=== PATIENT | female | born 1955 | race Caucasian/White ===

== ENCOUNTER 2016-12-08 07:16 | Inpatient (IN) | payer BC ==
[~2016-12-08] VITALS: Ht 170.2 cm; Wt 73.0 kg
[2016-12-08] MEDS ORDERED: morphine 4 MG/ML VIAL IV STA (07:30)
[2016-12-08] MEDS ORDERED: SOD CHLORIDE 0.9% 1,000 ML IV STA ×2 (07:30→13:38)
[2016-12-08] MEDS ORDERED: ONDANSETRON 4 MG INJ IV STA ×7 (07:30→16:10)
[2016-12-08] MEDS ORDERED: HYDROmorphONE 1 MG/ML SYG IV STA ×6 (07:57→16:10)
[2016-12-08] MEDS ORDERED: DIAZEPAM 5 MG/ML SYG IV ONE (08:00)
--- NOTE | 2016-12-08 08:24 | ERD ---
ER Documentation Chief Complaint Date/Time DATE: 12/08/16 TIME: 08:20 Chief Complaint back pain HPI This is a very pleasant 7-year-old female with a known history of chronic lymphocytic leukemia diagnosed 5 years prior to arrival who presents to the emergency department complaining of a sudden onset of mid and lower back pain. The patient indicates that roughly 2 weeks ago she lifted a printer and had sprained her back resulting in a mild muscle sprain. The patient indicated that 5 days ago she returned from a trip to [place] where she did a significant amount of walking and had no back pain. She indicates that this morning while in the bathroom she coughed and sneezed at the same time and all of a sudden felt a cracking sensation and a sudden onset of a severe muscle spasm in her lower back more prominent on the left buttocks. She indicated the pain caused her to fall to the floor. She did not hit her head or lose consciousness. She is complaining of numbness and tingling down her left lower leg. She denies any changes in her bladder or bowel frequency. She stated the pain was so intense she was unable to ambulate. She took a muscle relaxant half an hour prior to arrival however she stated there was no relief of her pain. The pain is 10 out of 10 in intensity. She denies any saddle anesthesia. She states there is been no changes in her bladder or bowel frequency since the onset of the sudden pain. She denies any shortness of breath at rest or exertion no swelling of her lower extremities. The patient indicates that her chronic lymphocytic leukemia has been treated and managed at the [facility], [place] by the retail customer service specialist Dr. Altaf Arora. 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 Sunday, 2 days from now the patient is to begin the monoclonal antibody infusion due to her becoming symptomatic with enlarged lymph nodes, generalized fatigue and elevation of her white blood count. Prior to the past 5 years she has not received any treatment as they have been monitoring her closely and she has remained asymptomatic until recently. The patient had a bone density test performed 2 months prior to arrival with a history of osteopenia. The patient denies any abdominal pain at this time. No gross hematuria. ROS All systems reviewed and are negative except as per history of present illness. Medications Home Meds Reported Medications Allopurinol* (Allopurinol*) 300 Mg Tablet, 300 MG PO DAILY, TAB PT WILL START 9-29-17 9/29/17 Alprazolam* (Xanax*) 0.25 Mg Tablet, 0.25 MG PO Q8H Y for ANXIETY, TAB 12/08/16 Zolpidem Tartrate* (Ambien*) 5 Mg Tablet, 2.5 MG PO QHS Y for INSOMNIA, #30 TAB 12/08/16 Levothyroxine Sodium* (Synthroid*) 100 Mcg Tablet, 100 MCG PO BEFORE BREAKFAST, #30 TAB 12/08/16 Bupropion Hcl* (Bupropion XL*) 150 Mg Tab.er.24h, 150 MG PO DAILY, TAB.SA 12/08/16 Fluoxetine Hcl* (Fluoxetine Hcl*) 40 Mg Capsule, 40 MG PO DAILY, CAP 12/08/16 Allergies Allergies: Coded Allergies: acetaminophen (Verified Allergy, Unknown, 12/08/16) hydrocodone (Verified Allergy, Unknown, 12/08/16) PMhx/Soc Medical and Surgical Hx: pt denies Medical Hx, pt denies Surgical Hx History of Surgery: No Anesthesia Reaction: No Hx Neurological Disorder: No Hx Respiratory Disorders: No Hx Cardiac Disorders: No Hx Psychiatric Problems: No Hx Miscellaneous Medical Probl: No Hx Alcohol Use: No Hx Substance Use: No Hx Tobacco Use: No Smoking Status: Never smoker Physical Exam Vitals Vital Signs Date Time Temp Pulse Resp B/P Pulse Ox O2 Delivery O2 Flow Rate FiO2 12/08/16 11:10 78 18 129/71 12/08/16 07:22 98.4 78 18 148/71 99 Physical Exam Constitutional:Well-developed. Well-nourished. Lying supine on her stretcher appear to be in a significant amount of discomfort secondary to pain HEENT:Normocephalic. Atraumatic.Pupils were equal round reactive to light. Moist mucous membranes.No tonsillar exudates. No nasal septal hematoma. No hemotympanum. Neck: No nuchal rigidity. No lymphadenopathy. No posterior cervical spine tenderness or step-offs. Respiratory: Not using accessory muscles of respiration.Lungs were clear to auscultation bilaterally. No rhonchi. No rales. No wheezing. Cardiovascular: Regular rate regular rhythm.No murmurs. No rubs were appreciated.S1, S2 normal. Distal pulses are palpable 2+ bilaterally. GI: Abdomen was soft. Nontender. Non Distended. No pulsatile abdominal masses or bruits. No rebound. No guarding. Bowel sounds were present and normal. Muscle skeletal: Range of motion of bilateral upper extremities. Straight leg test positive on the left as well as the right. Patient was unable to ambulate secondary to severe pain. Reproducible tenderness over the thoracic and lumbar spine extending from T12-L4 with palpation of the thoracic and lumbar spinous processes. No tenderness with percussion of the thoracic or lumbar spinous processes. Paralumbar tenderness in the left over L4-L5. Patient was able to lift the bilateral lower extremities up against gravity but this exacerbated severe pain in the patient's lower back. She was able to wiggle her toes and dorsiflex and plantarflex her feet bilaterally. No laxity on anterior posterior or lateral compression of the office. Lower extremities are equal length and symmetrical with no internal or external rotation Skin: No petechia, no purpura. No lesions on the palms or the soles of the feet. No maculopapular rash. NEURO: Patient was alert, awake, orientated x3.No facial droop. Gait not observed due to patient's severe pain.Speech had regular rate and rhythm. No focal neurological deficits. Result Diagram: 12/08/16 0822 12/08/16 0822 Results 24 hrs Laboratory Tests Test 12/08/16 08:22 White Blood Count 242.110^3/ul Red Blood Count 2.7210^6/ul Hemoglobin 7.6g/dl Hematocrit 26.3% Mean Corpuscular Volume 96.7fl Mean Corpuscular Hemoglobin 27.9pg Mean Corpuscular Hemoglobin Concent 28.9g/dl Red Cell Distribution Width 17.4% Platelet Count 04420^3/UL Mean Platelet Volume 9.9fl Neutrophils % % Segmented Neutrophils % (Manual) 2% Lymphocytes % % Lymphocytes % (Manual) 80% Reactive Lymphocytes % (Manual) 8% Monocytes % % Monocytes % (Manual) 9% Eosinophils % % Basophils % % Basophils % (Manual) 1% Nucleated Red Blood Cells % 0.0/100WBC Neutrophils # 10^3/ul Absolute Lymphocytes (Manual) 193.610^3/ul Lymphocytes # 10^3/ul Reactive Lymphocytes # 19.310^3/ul Monocytes # 10^3/ul Absolute Monocytes (Manual) 21.710^3/ul Eosinophils # 10^3/ul Basophils # 10^3/ul Basophils # (Manual) 2.410^3/ul Nucleated Red Blood Cells # 10^3/ul Pathologist Review (Hematology) YES Platelet Estimate DECREASED Polychromasia 1+ Anisocytosis 1+ Prothrombin Time 13.9Sec Prothrombin Time Ratio 1.1 INR International Normalized Ratio 1.07 Activated Partial Thromboplast Time 22.3Sec Sodium Level 139mmol/L Potassium Level 4.2mmol/L Chloride Level 105mmol/L Carbon Dioxide Level 24mmol/L Anion Gap 14 Blood Urea Nitrogen 17mg/dl Creatinine 1.08mg/dl Glucose Level 137mg/dl Calcium Level 9.6mg/dl Total Bilirubin 0.2mg/dl Direct Bilirubin 0.00mg/dl Indirect Bilirubin 0.2mg/dl Aspartate Amino Transf (AST/SGOT) 35IU/L Alanine Aminotransferase (ALT/SGPT) 27IU/L Alkaline Phosphatase 85IU/L Total Protein 11.0g/dl Albumin 4.0g/dl Globulin 7.00g/dl Albumin/Globulin Ratio 0.57 Current Medications Medications (Trade) Dose Ordered Sig/Kirit Route PRN Reason Start Time Stop Time Status Last Admin Dose Admin Sodium Chloride (NS) 1,000 ml @ 1,000 mls/hr Q1H STAT IV 12/08/16 07:30 12/08/16 08:29 DC 12/08/16 08:27 Morphine Sulfate (morphine) 4 mg ONCE STAT IV 12/08/16 07:30 12/08/16 07:31 DC 12/08/16 08:27 Ondansetron HCl (Zofran Inj) 4 mg ONCE STAT IV 12/08/16 07:30 12/08/16 07:31 DC 12/08/16 08:27 Hydromorphone HCl (Dilaudid) 1 mg ONCE STAT IV 12/08/16 07:57 12/08/16 07:58 Cancel Ondansetron HCl (Zofran Inj) 4 mg ONCE STAT IV 12/08/16 07:57 12/08/16 07:58 Cancel Diazepam (Valium) 5 mg ONCE ONCE IV 12/08/16 08:00 12/08/16 08:04 DC 12/08/16 08:27 Hydromorphone HCl (Dilaudid) 1 mg ONCE STAT IV 12/08/16 08:46 12/08/16 08:47 DC 12/08/16 08:49 Ondansetron HCl (Zofran Inj) 4 mg ONCE STAT IV 12/08/16 08:46 12/08/16 08:47 DC 12/08/16 08:49 Hydromorphone HCl (Dilaudid) 2 mg ONCE STAT IV 12/08/16 10:30 12/08/16 10:32 DC 12/08/16 10:57 Ondansetron HCl (Zofran Inj) 4 mg ONCE STAT IV 12/08/16 10:30 12/08/16 10:32 DC 12/08/16 10:57 Hydromorphone HCl (Dilaudid) 1 mg ONCE STAT IV 12/08/16 13:17 12/08/16 13:19 DC 12/08/16 14:07 Ondansetron HCl 4 mg 4 mg ONCE STAT IV 12/08/16 13:17 12/08/16 13:19 DC 12/08/16 14:07 Sodium Chloride (NS) 1,000 ml @ 1,000 mls/hr Q1H STAT IV 12/08/16 13:38 12/08/16 14:37 DC 12/08/16 14:10 Procedures/MDM The patient presented to the emergency department with back pain. My differential diagnosis included but was not limited to spinal origins of the pain such as fracture, osteomyelitis, epidural abscess, neoplasm, spondylolishtesis, discogenic, cauda equina syndrome or musculoligamentous. Nonspinal causes such as AAA, upper UTI, renal colic, aortic dissection, abdominal neoplasm were also considered as an etiology into their pain. The patient was placed on a monitoring specialist continuous pulse oximetry and IV access was established by nursing staff. The patient was in a significant amount discomfort and unable to ambulate with new focal neurological deficits. Given that there is mild trauma might concern for fracture was last and I was more concerned for the possibility of cord compression. Therefore the patient received IV steroids and will undergo an MRI of her thoracic and lumbar spine. She received analgesic medication of morphine and Valium as a muscle relaxant. The MRI and CT scan of the pelvis were reviewed by the radiologist as well as myself. The patient did have an L1 compression fracture however this was not an acute fracture. The patient continued to be monitored in the emergency department and was unable to ambulate due to the severe pain. She received further analgesic medication. Given that her symptoms do not improve I did obtain a neurosurgical consult and spoke with Dr. Soto. He indicated the patient would benefit from a pelvic MRI to rule out the possibility of a sacral insufficiency fracture. The patient was anemic with a hemoglobin less than 8. The patient was typed and crossed. A blood transfusion was not performed at this time as I have placed a call to the patient's retail customer service specialist oncologist Dr. Arora, as requested by the patient prior to any transfusion as she was concerned that this could affect her treatment of monoclonal antibody that she has set up at the [facility], [place] in the next 2 days. There was no active hemoptysis hematemesis or melanotic stools. Departure Diagnosis: Primary Impression: Injury of back Encounter type: initial encounter Qualified Code: S39.92XA - Injury of back , initial encounter Additional Impressions: Anemia Anemia type: unspecified type Qualified Code: D64.9 - Anemia, unspecified type Intractable low back pain Chronic lymphocytic leukemia Condition: KHANG Ingram Dec 08, 2016 08:24
[2016-12-08 08:45] LABS: ABNORMAL IP MESSAGE 1; HEMATOCRIT 26.3 % (37.0-47.0); HEMOGLOBIN 7.6 g/dl (12.0-16.0); MEAN CORPUSCULAR HEMOGLOBIN 27.9 pg (29.0-33.0); MEAN CORPUSCULAR HGB CONC 28.9 g/dl (32.0-37.0); MEAN CORPUSCULAR VOLUME 96.7 fl (82.0-101.0); MEAN PLATELET VOLUME 9.9 fl (7.4-10.4); PLATELET COUNT 134 10^3/UL (140-415); RED BLOOD COUNT 2.72 10^6/ul (4.20-5.40); RED CELL DISTRIBUTION WIDTH 17.4 % (11.5-14.5); WHITE BLOOD COUNT 242.1 10^3/ul (4.8-10.8)
[2016-12-08 08:50] LABS: POSITIVE DIFF @See below
[2016-12-08 08:51] LABS: PATH REVIEW? YES
[2016-12-08 08:56] LABS: INR 1.07; PROTIME 13.9 Sec (12.2-14.2); PT RATIO 1.1
[2016-12-08 08:57] LABS: PARTIAL THROMBOPLASTIN TIME 22.3 Sec (25.0-35.0)
[2016-12-08 08:58] LABS: BILIRUBIN,INDIRECT 0.2 mg/dl (0-1.1); BILIRUBIN,TOTAL 0.2 mg/dl (0.2-1.3); CALCIUM 9.6 mg/dl (8.4-10.2); CREATININE 1.08 mg/dl (0.44-1.00); POTASSIUM 4.2 mmol/L (3.5-5.1)
[2016-12-08 09:05] LABS: ALBUMIN/GLOBULIN RATIO 0.57
[2016-12-08 10:11] LABS: ANISOCYTOSIS 1+ (0-0); BASOPHILS % (M) 1 % (0-2); MONOCYTES % (M) 9 % (0-11); PLATELET ESTIMATE DECREASED; POLYCHROMASIA 1+ (0-0); REACTIVE LYMPHOCYTES% (M) 8 % (0-0)
--- NOTE | 2016-12-08 10:46 | RADRPT ---
PROCEDURE: CT pelvis without contrast. CLINICAL INDICATION: History of leukemia. Severe pelvic pain. Fall. TECHNIQUE: CT scan of the pelvis without contrast was performed. The patient was scanned without intravenous contrast. Coronal and sagittal reformatted images were obtained from the axial source i mages. Use of iterative reconstruction technique was employed. Images were reviewed on a high-resolu goodideazson PACS workstation. images. The calculated radiation dose measures 406.0 mGy centimeters. The CTD I measures 10.80 mGy. One or more of the following dose reduction techniques were used: - Automated exposure control. - Adjustment of the mA and/or kV according to patient size . - Use of iterative reconstruction technique. Images were reviewed on a high-resolution PACS workstation COMPARISON: None. FINDINGS: CT pelvis: Osseous structures: There is no acute osseous abnormality or evidence of fracture. There is a well-defined lucent lesions seen on the left ilium measuring 5.0 x 2.6 x 1.5 cm (AP by CC by TR) noting areas of cortical discontinuity posteriorly. This may be related to the patient's dis ease. There are additional scattered areas of lucency about the pelvis which are not well defined. T here is also a normal appearance of the subtrochanteric femur with suspicion for intramedullary lesi ons or medullary expansion. Mild bilateral hip arthrosis is present. Degenerative disc disease seen at the lower lumbar spine most pronounced at L5-S1 noting severe disc space narrowing. Mild bilateral SI joint arthrosis. Soft tissues The small bowel loops situated within the pelvis are unremarkable. The pelvic organs are normal. T he pelvic sidewalls and inguinal regions are clear. The sigmoid colon and rectum are remarkable for sigmoid diverticulosis. There are scattered, enlarged mesenteric lymph nodes throughout the visuali zed portions of the pelvis and abdomen. The spleen is partially visualized and is likely markedly e nlarged. Bulky pelvic lymphadenopathy is also present. The surrounding osseous structures are remarkable for degenerative spondylosis of the spine. No ost eolytic or osteoblastic lesion is detected. IMPRESSION: 1. No acute osseous abnormality or evidence of fracture. 2. Abnormal appearance of the bone marrow noting expansion of the subtrochanteric femur with endost eal irregularity as well as a well-defined lesion at the left ilium measuring 5.0 x 2.6 x 1.5 cm and could represent involvement of the patient's leukemia, along other less likely possibilities. No pa thologic fractures are seen. 4. Bulky adenopathy seen at the visualized portion of the mesentery and throughout the pelvis, also likely related to the patient's known malignancy. 5. Bone mineral density appears diminished. Please note that MRI is more sensitive in evaluating fo r a nondisplaced fractures in this setting. 6. Splenomegaly, partially assessed. RPTAT: VV .Simeon Hunter MD, MD Date Time Electronically viewed and signed by .Simeon Hunter MD, on 12/08/2016 10:46 .d/
--- NOTE | 2016-12-08 12:53 | RADRPT ---
PROCEDURE: MR Thoracic Spine without contrast CLINICAL INDICATION: Pain after sneezing. COMPARISON: None relevant listed. TECHNIQUE: Multiplanar multi-sequence images of the thoracic spine without intravenous contrast. FINDINGS: Alignment: Levoconvex curvature centered at T3-T4. Vertebral bodies: Old L1 compression fracture with approximately 65% height loss and 12 mm retropul edi resulting in canal narrowing. No acute fracture. See. T6 Schmorl's node. Bone marrow: Normal. Discs: Normal height and signal. Spinal cord: Normal. Degenerative change: T1-T2: No disc herniation. No central canal or foraminal narrowing. T2-T3: No disc herniation. No central canal or foraminal narrowing. T3-T4: No disc herniation. No central canal or foraminal narrowing. T4-T5: No disc herniation. No central canal or foraminal narrowing. T5-T6: No disc herniation. No central canal or foraminal narrowing. T6-T7: No disc herniation. No central canal or foraminal narrowing. T7-T8: No disc herniation. No central canal or foraminal narrowing. T8-T9: No disc herniation. No central canal or foraminal narrowing. T9-T10: No disc herniation. No central canal or foraminal narrowing. T10-T11: No disc herniation. No central canal or foraminal narrowing. T11-T12: No disc herniation. No central canal or foraminal narrowing. T12-L1: No disc herniation. No central canal or foraminal narrowing. Paraspinal musculature: Normal. Visualized chest and abdomen: Small right pleural effusion. Additional comment: None. IMPRESSION: 1. Levoconvex scoliosis centered at the upper lumbar spine. 2. L1 compression fracture with retropulsion, better characterized on dedicated MRI of the lumbar sp ine. 3. No significant central canal or foraminal narrowing within the thoracic spine. 4. Small right pleural effusion. RPTAT: [facility] Physician Dharmesh Date Time Electronically viewed and signed by Physician Dharmesh on 12/08/2016 12:53 LG/
[2016-12-08] MEDS ORDERED: FLUO40CA PO (13:03)
[2016-12-08] MEDS ORDERED: SYN1 PO (13:05)
[2016-12-08] MEDS ORDERED: BUPR150T6 PO (13:05)
[2016-12-08] MEDS ORDERED: ZOLP5TAB PO (13:06)
[2016-12-08] MEDS ORDERED: ALPR0.25 PO (13:07)
[2016-12-08] MEDS ORDERED: ALLO300T2 PO (13:15)
[2016-12-08] MEDS ORDERED: ONDANSETRON 4 MG INJ IV PRN (15:00)
[2016-12-08 15:17] LABS: PATH REVIEW CH
--- NOTE | 2016-12-08 16:47 | QN ---
Documentation Comment Patient was signed out to me by Dr. Whatley. At this point I do not see any indication for telemetry admission and I will downgrade the patient to medical surgical. JAM TAMAYO MD Dec 08, 2016 16:47
[2016-12-08 17:39] VITALS: BP 148/71; PULSE 83; RESP 16
[2016-12-08 18:19] VITALS: Ht 170.2 cm; Wt 73.0 kg
--- NOTE | 2016-12-08 18:47 | RADRPT ---
PROCEDURE: MRI pelvis. CLINICAL INDICATION: Chronic leukemia. Mild trauma with severe low back pain. TECHNIQUE: Noncontrast MRI of the pelvis, with axial, sagittal and coronal images. COMPARISON: CT pelvis dated today, earlier in the day about 7-1/2 hours ago. FINDINGS: There is marrow conversion of the osseous structures of the sacrum, pelvis and bilateral hips. Findi ngs are compatible with stated history of chronic leukemia. There is an expansile intramedullary lesion at the superior posterior left iliac, measuring 47 x 24 x 12 mm. There is destruction of the posterior cortex at the superior posterior left iliac. This les ion is only partially included on the current series and correlation is made with today's CT examina tion of the pelvis. Tissue diagnosis may be of further use. On today's CT examination and a similar intramedullary lesion is seen at the right sacral ala, witho ut cortical breakthrough, however, this is not well seen on today's MRI examination. A contrast enha nced MRI examination may be of further use. Otherwise, no acute fracture or dislocation. Bilateral pelvic sidewall adenopathy is seen measuring up to 25 x 14 mm on the right and 28 x 16 mm on the left. Numerous small mesenteric lymph nodes may be present. Remaining soft tissues are unrema rkable. IMPRESSION: 1. Marrow conversion seen in the sacrum, pelvis and bilateral hips, compatible with chronic leukemia described by history. 2. Expansile intramedullary lesion of the superior posterior left iliac with destruction of the post erior cortex at the superior posterior left iliac, seen to better advantage on today's CT examinatio n. 3. On today's CT examination there is a similar intramedullary lesion without cortical breakthrough at the right sacral ala, but this is not well seen on today's MRI examination. 4. A contrast enhanced MRI examination may be of further use. 5. Bilateral pelvic sidewall adenopathy, and numerous small mesenteric lymph nodes may be present. RPTAT: [facility] Physician Yahaira Date Time Electronically viewed and signed by Physician Yahaira on 12/08/2016 18:46 RS/
[2016-12-08 20:11] VITALS: BP 132/64; RESP 20
[2016-12-08] MEDS ORDERED: ALPRAZOLAM 0.25 MG TAB PO PRN (20:30)
[2016-12-08] MEDS: morphine 2 MG INJ IV PRN (21:12)
[2016-12-08] MEDS: ONDANSETRON 4 MG INJ IV PRN (21:15)
[2016-12-08] MEDS ORDERED: META800T99 PO (21:23)
[2016-12-08] MEDS ORDERED: DICL50TA11 PO (21:23)
--- NOTE | 2016-12-08 21:25 | CONS ---
Date/Time of Note Date/Time of Note DATE: 12/08/16 TIME: 21:19 Assessment/Plan Assessment/Plan Problems: (1) Injury of back Status: Acute Qualifiers: Qualified Code: S39.92XA - Injury of back, initial encounter Additional Assessment/Plan back pain. Imaging suggestive of chronic fracture. Pathological fracture cannot be excluded in my opinion. However, this is clearly stable (it is chronic) and I doubt very much related to patient's current presentation. There is in any event no indication for neurosurgical intervention at the present time. She is cleared to be mobilized as tolerated from the neurosurgical point of view. Consultation Date/Type/Reason Admit Date/Time Dec 08, 2016 at 14:56 Date of Consultation: Dec 08, 2016 Type of Consultation: NEUROSURGERY Reason for Consultation L1 fracture, back pain Hx of Present Illness Patient is 61 year old female with 5 year hx of CLL, due to start treatment on Sunday at [facility], had sudden onset of severe (incapacitating) low back pain after lifting/ twisting something heavy at home. CT shows L1 compression fracture with retropulsion and canal narrowing but no evidence of compression of the neural elements. There is essentially no edema at L1 to suggest a acute fracture. The patient also has a CT of the pelvis which demonstrates a 5cm mass in the ilium. The patient is not aware of any prior history of pelvic bone tumor or L1 compression fracture. She complains of severe pain but denies any neurologic complaints. Social History Smoking Status: Never smoker Exam/Review of Systems Vital Signs Vitals Vital Signs Date Time Temp Pulse Resp B/P Pulse Ox O2 Delivery O2 Flow Rate FiO2 12/08/16 20:11 98.2 76 20 132/64 98 12/08/16 17:41 Nasal Cannula 2.0 Exam A&O x 3 face = tml eomi moving all extremities 5/5 denies any hypoesthesia denies b/b complaints Constitutional: alert, oriented, well developed Psych: nl mood/affect Head: atraumatic, normocephalic Eyes: EOMI, nl conjunctiva, nl lids, nl sclera ENMT: mucosa pink and moist, nl external ears & nose, nl lips & teeth Neck: non-tender, supple Extremities: normal pulses Neurological: CAN STACKER II-XII intact, nl mental status, nl speech, nl strength Skin: nl turgor, rash or lesions Results Result Diagram: 12/08/16 0822 12/08/16 0822 Results 24 hrs Laboratory Tests Test 12/08/16 08:22 White Blood Count 242.1 H Red Blood Count 2.72 L Hemoglobin 7.6 L Hematocrit 26.3 L Mean Corpuscular Volume 96.7 Mean Corpuscular Hemoglobin 27.9 L Mean Corpuscular Hemoglobin Concent 28.9 L Red Cell Distribution Width 17.4 H Platelet Count 134 L Mean Platelet Volume 9.9 Neutrophils % Segmented Neutrophils % (Manual) 2 L Lymphocytes % Lymphocytes % (Manual) 80 H Reactive Lymphocytes % (Manual) 8 H Monocytes % Monocytes % (Manual) 9 Eosinophils % Basophils % Basophils % (Manual) 1 Nucleated Red Blood Cells % 0.0 Neutrophils # Absolute Lymphocytes (Manual) 193.6 H Lymphocytes # Reactive Lymphocytes # 19.3 H Monocytes # Absolute Monocytes (Manual) 21.7 H Eosinophils # Basophils # Basophils # (Manual) 2.4 H Nucleated Red Blood Cells # Pathologist Review (Hematology) CH Platelet Estimate DECREASED Polychromasia 1+ Anisocytosis 1+ Prothrombin Time 13.9 Prothrombin Time Ratio 1.1 INR International Normalized Ratio 1.07 Activated Partial Thromboplast Time 22.3 L Sodium Level 139 Potassium Level 4.2 Chloride Level 105 Carbon Dioxide Level 24 Anion Gap 14 Blood Urea Nitrogen 17 Creatinine 1.08 H Glucose Level 137 Calcium Level 9.6 Total Bilirubin 0.2 Direct Bilirubin 0.00 Indirect Bilirubin 0.2 Aspartate Amino Transf (AST/SGOT) 35 Alanine Aminotransferase (ALT/SGPT) 27 Alkaline Phosphatase 85 Total Protein 11.0 H Albumin 4.0 Globulin 7.00 H Albumin/Globulin Ratio 0.57 Medications Medications Current Medications Morphine Sulfate (morphine) 2 mg Q4H PRN IV pain; Start 12/08/16 at 20:30 Ondansetron HCl (Zofran Inj) 4 mg Q6 PRN IV NAUSEA AND/OR VOMITING; Start 12/08 at 20:30 Ketorolac Tromethamine (Toradol) 30 mg Q6H PRN IV PAIN; Start 12/08/16 at 20:30 ; Stop 12/11/16 at 20:29 Allopurinol (Zyloprim) 300 mg DAILY PO ; Start 12/09/16 at 09:00 Alprazolam (Xanax) 0.25 mg Q8H PRN PO ANXIETY; Start 12/08/16 at 20:30 Bupropion HCl (Wellbutrin Xl) 150 mg DAILY PO ; Start 12/09/16 at 09:00 Fluoxetine HCl (Prozac) 40 mg DAILY PO ; Start 12/09/16 at 09:00 Zolpidem Tartrate (Ambien) 2.5 mg QHS PRN PO INSOMNIA; Start 12/08/16 at 20:30 SYED SOUZA MD Dec 08, 2016 21:25
[2016-12-08] MEDS: KETOROLAC 30 MG INJ IV PRN (23:58)
[2016-12-09] VITALS (9 sets, daily range): BP systolic 120–144; BP diastolic 60–69; PULSE 62–68; RESP 14–18
[2016-12-09] MEDS: ZOLPIDEM 5 MG TAB PO PRN ×2 (02:23→23:51)
[2016-12-09] MEDS: morphine 2 MG INJ IV PRN ×3 (04:56→18:18)
[2016-12-09 05:16] LABS: ABNORMAL IP MESSAGE 1; MEAN CORPUSCULAR HGB CONC 27.6 g/dl (32.0-37.0); MEAN CORPUSCULAR VOLUME 97.7 fl (82.0-101.0); MEAN PLATELET VOLUME 10.1 fl (7.4-10.4); PLATELET COUNT 113 10^3/UL (140-415); RED BLOOD COUNT 2.56 10^6/ul (4.20-5.40); RED CELL DISTRIBUTION WIDTH 17.6 % (11.5-14.5); WHITE BLOOD COUNT 233.1 10^3/ul (4.8-10.8)
[2016-12-09 05:44] LABS: ALBUMIN 3.4 g/dl (3.3-4.9); ALBUMIN/GLOBULIN RATIO 0.53; BILIRUBIN,INDIRECT 0.3 mg/dl (0-1.1); BILIRUBIN,TOTAL 0.3 mg/dl (0.2-1.3); CALCIUM 9.7 mg/dl (8.4-10.2); CREATININE 0.98 mg/dl (0.44-1.00); MAGNESIUM 1.7 mg/dl (1.7-2.5); PHOSPHORUS 4.3 mg/dl (2.5-4.9); POTASSIUM 5.2 mmol/L (3.5-5.1); TOTAL PROTEIN 9.8 g/dl (6.1-8.1)
[2016-12-09] MEDS: METAXALONE 800 MG TAB PO PRN ×2 (05:51→13:45)
[2016-12-09 06:09] LABS: HEMOGLOBIN 6.9 g/dl (12.0-16.0); POSITIVE DIFF @See below
[2016-12-09] MEDS: LEVOTHYROXINE 100 MCG TAB PO SCH (06:13)
[2016-12-09] MEDS: KETOROLAC 30 MG INJ IV PRN ×3 (07:41→21:09)
[2016-12-09] MEDS: FLUOXETINE 20 MG CAP PO SCH (08:21)
[2016-12-09] MEDS: ALLOPURINOL 300 MG TAB PO SCH (08:22)
[2016-12-09] MEDS: BUPROPION (XL) 150 MG TAB PO SCH (08:22)
[2016-12-09 08:32] LABS: IRON 41 ug/dl (35-150)
[2016-12-09 08:41] LABS: TOTAL IRON BINDING CAPACITY 282 ug/dl (241-421)
--- NOTE | 2016-12-09 09:01 | HP ---
Date/Time of Note Date/Time of Note DATE: 12/09/16 TIME: 08:48 Assessment/Plan VTE Prophylaxis VTE Prophylaxis Intervention: SCD's Lines/Catheters IV Catheter Type (from Nrs): Saline Lock Urinary Cath still in place: No Assessment/Plan Assessment/Plan 1. Back pain, secondary to L1 compression fracture -Per neurosurgery, this is chronic and I does not think that this is contributing to patient's pain -Will provide pain medication and patient will have a physical therapy 2. CLL -Patient never been treated since diagnosis 5 years ago. She is however due to start treatment with monoclonal antibody at [facility] in a couple of days. Daytime hospitalist will cold patient's oncologist Dr. Stefano Pruitt at [phone]. 3. Bicytopenia with anemia and thrombocytopenia, possibly related to her malignancy -Again the daytime hospitalist need to talk to her oncologist before blood transfusion -Check for iron deficiency -PLT is above 100. Will just monitor 4. Hypothyroidism -Continue Synthroid 5. Anxiety/depression -Continue home meds HPI/ROS Admit Date/Time Admit Date/Time Dec 08, 2016 at 14:56 Hx of Present Illness This is a 61-year-old female with a history of CLL diagnosed 5 years ago, never been treated and has been under watchful observation. She presented to the ER was acute onset of back pain after she lifted a heavy object. Denied pain radiating down to her lower extremities. She also denied urinary or bowel incontinence. Lumbar MRI shows L1 compression fracture with retropulsion, better characterized on dedicated MRI of the lumbar spine. Patient was seen by neurosurgery who thinks that the fracture is chronic. Patient stated that she had been unable to walk because of pain. As far as her CLL is concerned, she has never been treated, but she is scheduled for initiation of her treatment with monoclonal antibody and such at [facility] on Sunday. She presented to the ER with a WBC of around 230,000 and her latest hemoglobin is 6.9. She does not want any blood transfusion because of the planned treatment at [facility] of 4/h on Sunday. Her oncologist is Dr. Stefano Pruitt and his telephone number is [phone] ROS Psychological: nl mood/affect PMH/Family/Social Past Medical History Medical History: other (CLL, hypothyroidism, depression/anxiety) Social History Alcohol Use: none Smoking Status: Never smoker Drug Use: none Exam/Review of Systems Vital Signs Vitals Vital Signs Date Time Temp Pulse Resp B/P Pulse Ox O2 Delivery O2 Flow Rate FiO2 12/09/16 08:15 98.4 75 15 120/67 96 12/09/16 06:26 Nasal Cannula 2.0 Intake and Output 12/08/16 12/08/16 12/09/16 15:00 23:00 07:00 Intake Total 700 ml Output Total 650 ml Balance 50 ml Exam Constitutional: alert, oriented, well developed Head: atraumatic, normocephalic Eyes: EOMI, PERRL Respiratory: clear to auscultation, normal air movement Cardiovascular: nl pulses, regular rate and rhythm Gastrointestinal: non-tender, soft Musculoskeletal: other Extremities: normal pulses Neurological: other (Straight leg raising caused pain on her back) Labs Result Diagram: 12/09/16 0453 12/09/16 0453 Medications Medications Current Medications Morphine Sulfate (morphine) 2 mg Q4H PRN IV pain Last administered on 04:56; Admin Dose 2 MG; Start 12/08/16 at 20:30 Ondansetron HCl (Zofran Inj) 4 mg Q6 PRN IV NAUSEA AND/OR VOMITING Last administered on 12/08/16 21:15; Admin Dose 4 MG; Start 12/08/16 at 20:30 Ketorolac Tromethamine (Toradol) 30 mg Q6H PRN IV PAIN Last administered on 07:41; Admin Dose 30 MG; Start 12/08/16 at 20:30; Stop 12/11/16 at 20:29 Allopurinol (Zyloprim) 300 mg DAILY PO Last administered on 12/09/16 08:22; Admin Dose 300 MG; Start 12/09/16 at 09:00 Alprazolam (Xanax) 0.25 mg Q8H PRN PO ANXIETY Last administered on 12/08/16 22 :12; Admin Dose 0.25 MG; Start 12/08/16 at 20:30 Bupropion HCl (Wellbutrin Xl) 150 mg DAILY PO Last administered on 12/09/16 08 :22; Admin Dose 150 MG; Start 12/09/16 at 09:00 Fluoxetine HCl (Prozac) 40 mg DAILY PO Last administered on 12/09/16 08:21; Admin Dose 40 MG; Start 12/09/16 at 09:00 Zolpidem Tartrate (Ambien) 2.5 mg QHS PRN PO INSOMNIA Last administered on 12/09 02:23; Admin Dose 2.5 MG; Start 12/08/16 at 20:30 Diclofenac Sodium (Voltaren) 50 mg BID PRN PO MUSCLE SPASMS; Start 12/11/16 at 20:30 Metaxalone (Skelaxin) 800 mg Q6 PRN PO MUSCLE SPASMS Last administered on 05:51; Admin Dose 800 MG; Start 12/08/16 at 21:30 MANJULA WEBER MD Dec 09, 2016 08:59
[2016-12-09 09:08] LABS: ANISOCYTOSIS 2+ (0-0); GIANT THROMBO% (M) 1 % (0-0); HYPOCHROMASIA 2+ (0-0); MICROCYTOSIS 1+ (0-0); MONOCYTES % (M) 4 % (0-11); POLYCHROMASIA 3+ (0-0)
--- NOTE | 2016-12-09 13:06 | PN ---
Date/Time of Note Date/Time of Note DATE: 12/09/16 TIME: 13:06 Assessment/Plan VTE Prophylaxis VTE Prophylaxis Intervention: SCD's Lines/Catheters IV Catheter Type (from Nrs): Saline Lock Urinary Cath still in place: No Assessment/Plan Chief Complaint/Hosp Course Assessment/Plan: 61 F with: 1. Back pain, secondary to L1 compression fracture-appears to be chronic based on neurosurgery consult evaluation of patient, apparently they do not think that this is contributing to patient's pain -Will provide pain medication and patient will have a physical therapy, although patient and family are asking for some steroid injection, we will discuss with neurosurgery team. Also add muscle relaxant. 2. CLL -Patient never been treated since diagnosis 5 years ago. She is however due to start treatment with monoclonal antibody at [facility] in a couple of days. Daytime hospitalist will cold patient's oncologist Dr. Stefano Pruitt at [phone]. 3. Bicytopenia with anemia and thrombocytopenia, possibly related to her malignancy -Again the daytime hospitalist need to talk to her oncologist before blood transfusion -Check for iron deficiency -PLT is above 100. Will just monitor 4. Hypothyroidism -Continue Synthroid 5. Anxiety/depression -Continue home meds Problems: Subjective 24 Hr Interval Summary Free Text/Dictation Patient still complaining of back pain. Exam/Review of Systems Vital Signs Vitals Vital Signs Date Time Temp Pulse Resp B/P Pulse Ox O2 Delivery O2 Flow Rate FiO2 12/09/16 08:15 98.4 75 15 120/67 96 12/09/16 08:00 Nasal Cannula 2.0 Intake and Output 12/08/16 12/08/16 12/09/16 15:00 23:00 07:00 Intake Total 700 ml Output Total 650 ml Balance 50 ml Exam Constitutional: alert, oriented, well developed Head: atraumatic, normocephalic Eyes: EOMI, PERRL Respiratory: clear to auscultation, normal air movement Cardiovascular: nl pulses, regular rate and rhythm Gastrointestinal: non-tender, soft Musculoskeletal: other Extremities: normal pulses Neurological: other (Straight leg raising caused pain on her back) Results Result Diagram: 12/09/16 0453 12/09/16 0453 Results 24 hrs Laboratory Tests Test 12/09/16 04:53 White Blood Count 233.1 H Red Blood Count 2.56 L Hemoglobin 6.9 *L Hematocrit 25.0 L Mean Corpuscular Volume 97.7 Mean Corpuscular Hemoglobin 27.0 L Mean Corpuscular Hemoglobin Concent 27.6 L Red Cell Distribution Width 17.6 H Platelet Count 113 L Mean Platelet Volume 10.1 Neutrophils % Segmented Neutrophils % (Manual) 5 L Lymphocytes % Lymphocytes % (Manual) 92 H Monocytes % Monocytes % (Manual) 4 Eosinophils % Basophils % Nucleated Red Blood Cells % 0.0 Neutrophils # Absolute Lymphocytes (Manual) 214.4 H Lymphocytes # Monocytes # Absolute Monocytes (Manual) 9.3 H Eosinophils # Basophils # Nucleated Red Blood Cells # Giant Platelets 1 H Polychromasia 3+ Hypochromasia 2+ Anisocytosis 2+ Microcytosis 1+ Macrocytosis 1+ Sodium Level 134 L Potassium Level 5.2 H Chloride Level 102 Carbon Dioxide Level 28 Anion Gap 9 # Blood Urea Nitrogen 17 Creatinine 0.98 Glucose Level 154 Calcium Level 9.7 Phosphorus Level 4.3 Magnesium Level 1.7 Iron Level 41 Total Iron Binding Capacity 282 Percent Iron Saturation 15 L Ferritin 48.7 Total Bilirubin 0.3 Direct Bilirubin 0.00 Indirect Bilirubin 0.3 Aspartate Amino Transf (AST/SGOT) 36 Alanine Aminotransferase (ALT/SGPT) 18 Alkaline Phosphatase 82 Total Protein 9.8 H Albumin 3.4 Globulin 6.40 H Albumin/Globulin Ratio 0.53 Medications Medications Current Medications Morphine Sulfate (morphine) 2 mg Q4H PRN IV pain Last administered on 10:37; Admin Dose 2 MG; Start 12/08/16 at 20:30 Ondansetron HCl (Zofran Inj) 4 mg Q6 PRN IV NAUSEA AND/OR VOMITING Last administered on 12/08/16 21:15; Admin Dose 4 MG; Start 12/08/16 at 20:30 Ketorolac Tromethamine (Toradol) 30 mg Q6H PRN IV PAIN Last administered on 07:41; Admin Dose 30 MG; Start 12/08/16 at 20:30; Stop 12/11/16 at 20:29 Allopurinol (Zyloprim) 300 mg DAILY PO Last administered on 12/09/16 08:22; Admin Dose 300 MG; Start 12/09/16 at 09:00 Alprazolam (Xanax) 0.25 mg Q8H PRN PO ANXIETY Last administered on 12/08/16 22 :12; Admin Dose 0.25 MG; Start 12/08/16 at 20:30 Bupropion HCl (Wellbutrin Xl) 150 mg DAILY PO Last administered on 12/09/16 08 :22; Admin Dose 150 MG; Start 12/09/16 at 09:00 Fluoxetine HCl (Prozac) 40 mg DAILY PO Last administered on 12/09/16 08:21; Admin Dose 40 MG; Start 12/09/16 at 09:00 Zolpidem Tartrate (Ambien) 2.5 mg QHS PRN PO INSOMNIA Last administered on 12/09 02:23; Admin Dose 2.5 MG; Start 12/08/16 at 20:30 Diclofenac Sodium (Voltaren) 50 mg BID PRN PO MUSCLE SPASMS; Start 12/11/16 at 20:30 Metaxalone (Skelaxin) 800 mg Q6 PRN PO MUSCLE SPASMS Last administered on 05:51; Admin Dose 800 MG; Start 12/08/16 at 21:30 SAL CULLEN Dec 09, 2016 13:06
[2016-12-09] MEDS: ONDANSETRON 4 MG INJ IV PRN (21:08)
[2016-12-09] MEDS ORDERED: CALCIUM CARBONATE 500 MG CHEW TAB PO PRN (23:30)
[2016-12-10 00:10] VITALS: BP 139/72; PULSE 62; RESP 18
[2016-12-10 02:18] VITALS: BP 137/63; RESP 18
[2016-12-10] MEDS ORDERED: CALCIUM CARBONATE 500 MG CHEW TAB PO PRN (05:30)
[2016-12-10] MEDS: LEVOTHYROXINE 100 MCG TAB PO SCH (06:02)
[2016-12-10 07:40] VITALS: BP 157/81; RESP 20
[2016-12-10] MEDS: FAMOTIDINE 20 MG INJ IV SCH (08:17)
[2016-12-10] MEDS: METAXALONE 800 MG TAB PO PRN (08:18)
[2016-12-10] MEDS: ALLOPURINOL 300 MG TAB PO SCH (08:18)
[2016-12-10] MEDS: FLUOXETINE 20 MG CAP PO SCH (08:18)
[2016-12-10] MEDS: BUPROPION (XL) 150 MG TAB PO SCH (08:18)
[2016-12-10] MEDS: KETOROLAC 30 MG INJ IV PRN (08:19)
[2016-12-10] MEDS: ONDANSETRON 4 MG INJ IV PRN ×3 (08:27→21:41)
[2016-12-10] MEDS ORDERED: RANITIDINE 150 MG TAB PO SCH (09:00)
[2016-12-10] MEDS ORDERED: ACETAMINOPHEN 325 MG TAB PO PRN (11:30)
--- NOTE | 2016-12-10 11:45 | PN ---
Date/Time of Note Date/Time of Note DATE: 12/10/16 TIME: 11:43 Assessment/Plan VTE Prophylaxis VTE Prophylaxis Intervention: other Lines/Catheters IV [facility]from [facility] Saline Lock Urinary Cath still in place: No Assessment/Plan Problems: (1) Chronic lymphocytic leukemia Status: Acute Comment: She was scheduled to start a new medication at [facility] with Dr. Arora. This will be temporary delayed while we get her pain under control. (2) Intractable low back pain Status: Acute Comment: Is been seen by neurosurgeon who did apparently does not feel that this is a primary skeletal issue. I am in agreement with that. I need to give her some anti-inflammatory medications as Villarreal 2 selective as possible; Tylenol; and a different muscle relaxant. She will use GI tract prophylaxis to protect. (3) Anemia Status: Acute Comment: That is posttransfusion and stable. Qualifiers: Anemia type: unspecified type Qualified Code: D64.9 - Anemia, unspecified type Subjective 24 Hr Interval Summary Free Text/Dictation Charming female in bed reporting that her pain has recurred and is the worst pain in her back that she is ever had. Typically states it does not radiate down to the legs it does not radiate to the front it does not radiate. Comes from the lower lumbar area out laterally toward the pelvic crests. Not involve the pelvis or pelvic bones Constitutional: no complaints (No fevers chills or sweats) Respiratory: no complaints Cardiovascular: no complaints Gastrointestinal: no complaints Exam/Review of Systems Vital Signs Vitals Vital Signs Date Time Temp Pulse Resp B/P Pulse Ox O2 Delivery O2 Flow Rate FiO2 12/10/16 08:15 Nasal Cannula 2.0 12/10/16 07:40 98.4 71 20 157/81 91 Intake and Output 12/09/16 12/09/16 12/10/16 15:00 23:00 07:00 Intake Total 1100 ml 1310 ml Balance 1100 ml 1310 ml Exam Constitutional: alert, oriented Respiratory: clear to auscultation, normal air movement Cardiovascular: nl pulses, regular rate and rhythm Gastrointestinal: nl liver, spleen, non-tender, soft Musculoskeletal: other (Muscle spasm in the geno-lumbar area) Results Result Diagram: 12/09/16 0453 12/09/16 0453 Results 24 hrs Laboratory Tests Test 12/10/16 06:37 Lab Scanned Report BLOOD TRANSFUSION Medications Medications Current Medications Morphine Sulfate (morphine) 2 mg Q4H PRN IV pain Last administered on 18:18; Admin Dose 2 MG; Start 12/08/16 at 20:30 Ondansetron HCl (Zofran Inj) 4 mg Q6 PRN IV NAUSEA AND/OR VOMITING Last administered on 12/10/16 08:27; Admin Dose 4 MG; Start 12/08/16 at 20:30 Ketorolac Tromethamine (Toradol) 30 mg Q6H PRN IV PAIN Last administered on 08:19; Admin Dose 30 MG; Start 12/08/16 at 20:30; Stop 12/11/16 at 20:29 Allopurinol (Zyloprim) 300 mg DAILY PO Last administered on 12/10/16 08:18; Admin Dose 300 MG; Start 12/09/16 at 09:00 Alprazolam (Xanax) 0.25 mg Q8H PRN PO ANXIETY Last administered on 12/08/16 22 :12; Admin Dose 0.25 MG; Start 12/08/16 at 20:30 Bupropion HCl (Wellbutrin Xl) 150 mg DAILY PO Last administered on 12/10/16 08 :18; Admin Dose 150 MG; Start 12/09/16 at 09:00 Fluoxetine HCl (Prozac) 40 mg DAILY PO Last administered on 12/10/16 08:18; Admin Dose 40 MG; Start 12/09/16 at 09:00 Zolpidem Tartrate (Ambien) 2.5 mg QHS PRN PO INSOMNIA Last administered on 12/09 23:51; Admin Dose 2.5 MG; Start 12/08/16 at 20:30 Diclofenac Sodium (Voltaren) 50 mg BID PRN PO MUSCLE SPASMS; Start 12/11/16 at 20:30 Metaxalone (Skelaxin) 800 mg Q6 PRN PO MUSCLE SPASMS Last administered on 08:18; Admin Dose 800 MG; Start 12/08/16 at 21:30 Calcium Carbonate (Tums) 1,000 mg Q6H PRN PO acid reflux; Start 12/10/16 at 05: 30 Ranitidine HCl (Zantac) 150 mg BID PO ; Start 12/10/16 at 09:00; Status Future Hold Famotidine (Pepcid Iv) 20 mg DAILY IV Last administered on 12/10/16t 08:17; Admin Dose 20 MG; Start 12/10/16 at 09:00 TOÑITO MARIE MD Dec 10, 2016 11:45
[2016-12-10] MEDS: SUCRALFATE 1 GM TAB PO SCH ×2 (11:55→17:03)
[2016-12-10] MEDS: CELECOXIB 200 MG CAP PO SCH ×2 (11:55→20:20)
[2016-12-10] MEDS: TIZANIDINE 4 MG TAB PO SCH ×2 (12:37→20:20)
[2016-12-10 14:00] VITALS: BP 134/72; RESP 20
[2016-12-10] MEDS ORDERED: MAGNESIUM HYDROXIDE 30ML CUP PO PRN (15:00)
[2016-12-10] MEDS ORDERED: POLYETHYLENE GLYCOL 17 GM PACKET PO ONE (15:30)
[2016-12-10] MEDS ORDERED: LACTULOSE 30ML CUP PO ONE (15:30)
[2016-12-10] MEDS: morphine 2 MG INJ IV PRN ×2 (15:37→19:24)
[2016-12-10 19:15] VITALS: BP 166/83; RESP 20
[2016-12-10] MEDS: ZOLPIDEM 5 MG TAB PO PRN (21:45)
[2016-12-11 02:15] VITALS: BP 132/67; RESP 18
[2016-12-11] MEDS: ONDANSETRON 4 MG INJ IV PRN ×3 (05:13→21:10)
[2016-12-11] MEDS: morphine 2 MG INJ IV PRN ×2 (05:13→10:34)
[2016-12-11 05:17] LABS: ABNORMAL IP MESSAGE 1; HEMATOCRIT 29.3 % (37.0-47.0); HEMOGLOBIN 8.8 g/dl (12.0-16.0); MEAN CORPUSCULAR HEMOGLOBIN 28.5 pg (29.0-33.0); MEAN CORPUSCULAR VOLUME 94.8 fl (82.0-101.0); MEAN PLATELET VOLUME 10.1 fl (7.4-10.4); PLATELET COUNT 128 10^3/UL (140-415); RED BLOOD COUNT 3.09 10^6/ul (4.20-5.40); RED CELL DISTRIBUTION WIDTH 16.7 % (11.5-14.5); WHITE BLOOD COUNT 247.2 10^3/ul (4.8-10.8)
[2016-12-11] MEDS: SUCRALFATE 1 GM TAB PO SCH ×4 (05:23→17:12)
[2016-12-11] MEDS: LEVOTHYROXINE 100 MCG TAB PO SCH (05:23)
[2016-12-11 05:30] LABS: POSITIVE DIFF @See below
[2016-12-11 05:33] LABS: CALCIUM 9.1 mg/dl (8.4-10.2); CREATININE 0.96 mg/dl (0.44-1.00)
[2016-12-11 07:42] VITALS: BP 131/61; RESP 19
[2016-12-11 07:44] LABS: ANISOCYTOSIS 1+ (0-0); HYPOCHROMASIA 1+ (0-0); MONOCYTES % (M) 1 % (0-11); PLATELET ESTIMATE DECREASED; POLYCHROMASIA 1+ (0-0); REACTIVE LYMPHOCYTES% (M) 5 % (0-0)
[2016-12-11] MEDS: BUPROPION (XL) 150 MG TAB PO SCH (09:13)
[2016-12-11] MEDS: ALLOPURINOL 300 MG TAB PO SCH (09:13)
[2016-12-11] MEDS: CELECOXIB 200 MG CAP PO SCH ×2 (09:13→21:06)
[2016-12-11] MEDS: TIZANIDINE 4 MG TAB PO SCH ×3 (09:14→21:06)
[2016-12-11] MEDS: FAMOTIDINE 20 MG INJ IV SCH (09:14)
[2016-12-11] MEDS: FLUOXETINE 20 MG CAP PO SCH (09:14)
--- NOTE | 2016-12-11 11:29 | PN ---
Date/Time of Note Date/Time of Note DATE: 12/11/16 TIME: 11:29 Assessment/Plan VTE Prophylaxis VTE Prophylaxis Intervention: ambulation Lines/Catheters IV [facility] (from [facility] Saline Lock Urinary Cath still in place: No Assessment/Plan Chief Complaint/Hosp Course 1.Chronic lymphocytic leukemia -Patient to follow-up with [facility] with Dr. Arora FOR treatment with monoclonal antibody 2.Intractable low back pain with chronic compression fractures of lumbar spine. Differentials include pathological fracture. -Neurosurgery evaluation appreciated . No need for any neurosurgical intervention at this time. -Continue with Villarreal 2 selective inhibitors, muscle relaxants and Dilaudid PRN. 3. Anemia of chronic disease. -HH stable. Will monitor. 4. Bicytopenia with anemia and thrombocytopenia, possibly related to her malignancy -We did monitor. Currently her counts are stable and did not require any transfusion. 5. Leukocytosis secondary to underlying malignancy. -No evidence of infection. Will monitor. 6. Hypothyroidism -Continue Synthroid 7. Anxiety/depression -Continue home meds 8. Hyponatremia. -Treat with IV fluids and monitor. Plan: Continue to monitor patient in-house. We have also added Dilaudid to her current pain medications and will monitor the effectiveness over the next 24 hours. If patient feels improvement, most likely she can be discharged home on oral pain medications with [facility] outpatient follow-up for underlying malignancy. Patient was seen in collaboration with . Problems: Subjective 24 Hr Interval Summary Free Text/Dictation Patient sitting up in chair. With improved back pain. Exam/Review of Systems Vital Signs Vitals Vital Signs Date Time Temp Pulse Resp B/P Pulse Ox O2 Delivery O2 Flow Rate FiO2 12/11/16 07:42 98.0 71 19 131/61 97 12/10/16 20:20 Nasal Cannula 2.0 Intake and Output 12/10/16 12/10/16 12/11/16 15:00 23:00 07:00 Intake Total 720 ml 620 ml Output Total 800 ml 800 ml Balance -80 ml -180 ml Exam General: Well developed,adequately built, not in any acute distress . HEENT: Normocephalic, Atraumatic, No laceration or hematoma; Eyes: PEERL, Conjunctiva clear, Anicteric sclera Neck: Supple without any lymphadenopathy, nontender, no JVD, no carotid bruits, trachea midline, no thyromegaly Cardiac: S1, S2 auscultated, regular rhythm and rate, no mumurs or gallop Pulmonary: Normal respiratory effort. Chest clear to auscultation bilaterally, no adventitious breath sounds GI: Abdomen normal to inspection. Soft, non tender, non- distended, no masses, no rebound tenderness or guarding. Bowel sounds active on all four quadrants Genitourinary: Deferred Extremities: Patient with lumbar support. No cyanosis, clubbing, or edema. Pulses [2+] bilaterally. Full ROM on all four extremities. No focal weakness appreciated. Neurologic: Alert to person, place, time, and situation. Affect appropriate, intact sensation. Skin: Clean,dry, and intact. No ecchymosis, no rashes, or lesions Results Result Diagram: 12/11/16 0447 12/11/16 0446 Results 24 hrs Laboratory Tests Test 12/11/16 04:46 12/11/16 04:47 Sodium Level 130 L Potassium Level 4.0 Chloride Level 94 L Carbon Dioxide Level 29 Anion Gap 11 Blood Urea Nitrogen 17 Creatinine 0.96 Glucose Level 114 # Calcium Level 9.1 White Blood Count 247.2 H Red Blood Count 3.09 #L Hemoglobin 8.8 #L Hematocrit 29.3 L Mean Corpuscular Volume 94.8 Mean Corpuscular Hemoglobin 28.5 L Mean Corpuscular Hemoglobin Concent 30.0 L Red Cell Distribution Width 16.7 H Platelet Count 128 L Mean Platelet Volume 10.1 Neutrophils % Segmented Neutrophils % (Manual) 1 L Lymphocytes % Lymphocytes % (Manual) 93 H Reactive Lymphocytes % (Manual) 5 H Monocytes % Monocytes % (Manual) 1 Eosinophils % Basophils % Nucleated Red Blood Cells % 0.0 Neutrophils # Absolute Lymphocytes (Manual) 229.8 H Lymphocytes # Reactive Lymphocytes # 12.3 H Monocytes # Absolute Monocytes (Manual) 2.4 H Eosinophils # Basophils # Nucleated Red Blood Cells # Platelet Estimate DECREASED Polychromasia 1+ Hypochromasia 1+ Anisocytosis 1+ Medications Medications Current Medications Morphine Sulfate (morphine) 2 mg Q4H PRN IV pain Last administered on 10:34; Admin Dose 2 MG; Start 12/08/16 at 20:30 Ondansetron HCl (Zofran Inj) 4 mg Q6 PRN IV NAUSEA AND/OR VOMITING Last administered on 12/11/16 10:34; Admin Dose 4 MG; Start 12/08/16 at 20:30 Allopurinol (Zyloprim) 300 mg DAILY PO Last administered on 12/11/16 09:13; Admin Dose 300 MG; Start 12/09/16 at 09:00 Alprazolam (Xanax) 0.25 mg Q8H PRN PO ANXIETY Last administered on 12/08/16 22 :12; Admin Dose 0.25 MG; Start 12/08/16 at 20:30 Bupropion HCl (Wellbutrin Xl) 150 mg DAILY PO Last administered on 12/11/16 09 :13; Admin Dose 150 MG; Start 12/09/16 at 09:00 Fluoxetine HCl (Prozac) 40 mg DAILY PO Last administered on 12/11/16 09:14; Admin Dose 40 MG; Start 12/09/16 at 09:00 Zolpidem Tartrate (Ambien) 2.5 mg QHS PRN PO INSOMNIA Last administered on 12/10 21:45; Admin Dose 2.5 MG; Start 12/08/16 at 20:30 Calcium Carbonate (Tums) 1,000 mg Q6H PRN PO acid reflux; Start 12/10/16 at 05: 30 Ranitidine HCl (Zantac) 150 mg BID PO ; Start 12/10/16 at 09:00; Status Future Hold Famotidine (Pepcid Iv) 20 mg DAILY IV Last administered on 12/11/16 09:14; Admin Dose 20 MG; Start 12/10/16 at 09:00 Celecoxib (Celebrex) 200 mg BID PO Last administered on 12/11/16 09:13; Admin Dose 200 MG; Start 12/10/16 at 11:30 Sucralfate (Carafate) 1 gm Q6 PO Last administered on 12/11/16 05:23; Admin Dose 1 GM; Start 12/10/16 at 12:00 Acetaminophen (Tylenol Tab) 650 mg Q6H PRN PO PAIN AND OR ELEVATED TEMP; Start 12/10/16 at 11:30; Status Future hold Tizanidine HCl (Zanaflex) 4 mg TID PO Last administered on 12/11/16 09:14; Admin Dose 4 MG; Start 12/10/16 at 13:00 Magnesium Hydroxide (Milk Of Mag) 30 ml DAILY PRN PO CONSTIPATION Last administered on 12/11/16t 05:23; Admin Dose 30 ML; Start 12/10/16 at 15:00 VICKIE ALVARES NP Dec 11, 2016 11:29
[2016-12-11] MEDS ORDERED: SOD CHLORIDE 0.9% 1,000 ML IV SCH (15:30)
[2016-12-11 19:20] VITALS: BP 157/78; RESP 18
[2016-12-11] MEDS ORDERED: DICLOFENAC (EC) 25 MG TAB PO PRN (20:30)
[2016-12-11] MEDS: HYDROmorphONE 1 MG/ML SYG IV PRN (21:07)
[2016-12-12 02:31] VITALS: BP 138/78; RESP 19
[2016-12-12 05:38] LABS: CALCIUM 9.1 mg/dl (8.4-10.2); CREATININE 1.11 mg/dl (0.44-1.00); POTASSIUM 4.5 mmol/L (3.5-5.1)
[2016-12-12] MEDS: LEVOTHYROXINE 100 MCG TAB PO SCH (06:35)
[2016-12-12] MEDS: SUCRALFATE 1 GM TAB PO SCH ×5 (06:35→23:06)
[2016-12-12 08:05] VITALS: BP 145/71; RESP 18
[2016-12-12] MEDS: ALLOPURINOL 300 MG TAB PO SCH (09:09)
[2016-12-12] MEDS: TIZANIDINE 4 MG TAB PO SCH ×3 (09:09→21:00)
[2016-12-12] MEDS: FLUOXETINE 20 MG CAP PO SCH (09:09)
[2016-12-12] MEDS: BUPROPION (XL) 150 MG TAB PO SCH (09:09)
[2016-12-12] MEDS: FAMOTIDINE 20 MG INJ IV SCH (09:09)
[2016-12-12] MEDS: CELECOXIB 200 MG CAP PO SCH ×2 (09:09→21:00)
[2016-12-12] MEDS: HYDROmorphONE 1 MG/ML SYG IV PRN ×3 (09:15→21:03)
--- NOTE | 2016-12-12 10:49 | PN ---
Date/Time of Note Date/Time of Note DATE: 12/12/16 TIME: 10:49 Assessment/Plan VTE Prophylaxis VTE Prophylaxis Intervention: ambulation Lines/Catheters IV Catheter Type (from Nrsg): Peripheral IV Urinary Cath still in place: No Assessment/Plan Chief Complaint/Hosp Course 1.Chronic lymphocytic leukemia -Patient to follow-up with [facility] with Dr. Arora FOR treatment with monoclonal antibody 2.Intractable low back pain with chronic compression fractures of lumbar spine. Differentials include pathological fracture. Improving. -Neurosurgery evaluation appreciated . No intervention required. -Continue with Villarreal 2 selective inhibitors, muscle relaxants and Dilaudid PRN. 3. Anemia of chronic disease. -HH stable. Will monitor. 4. Bicytopenia with anemia and thrombocytopenia, possibly related to her malignancy -monitor. Currently her counts are stable and did not require any transfusion. 5. Leukocytosis secondary to underlying malignancy. -No evidence of infection. Will monitor. 6. Hypothyroidism -Continue Synthroid 7. Anxiety/depression -Continue home meds 8. Hyponatremia. Improved with normal saline. -We will administer another liter of normal saline. 9. Mild acute kidney injury, likely dehydration. -Treat with IV fluids. Plan: Patient with significant improvement in pain. We will keep patient in- house another 24 hours and will transition her to oral Percocet and most likely she can be discharged home on oral pain medications with [facility] outpatient follow-up for underlying malignancy. Case management for home health physical therapy and frontwheel walker. Patient was seen in collaboration with . Problems: Subjective 24 Hr Interval Summary Free Text/Dictation Patient with significant improvement in back pain after Dilaudid. She is now getting physical therapy. Exam/Review of Systems Vital Signs Vitals Vital Signs Date Time Temp Pulse Resp B/P Pulse Ox O2 Delivery O2 Flow Rate FiO2 12/12/16 08:05 98.2 76 18 145/71 91 12/11/16 20:10 Nasal Cannula 2.0 Intake and Output 12/11/16 12/11/16 12/12/16 15:00 23:00 07:00 Intake Total 1620 ml 900 ml Balance 1620 ml 900 ml Exam General: Well developed,adequately built, not in any acute distress . HEENT: Normocephalic, Atraumatic, No laceration or hematoma; Eyes: PEERL, Conjunctiva clear, Anicteric sclera Neck: Supple without any lymphadenopathy, nontender, no JVD, no carotid bruits, trachea midline, no thyromegaly Cardiac: S1, S2 auscultated, regular rhythm and rate, no mumurs or gallop Pulmonary: Normal respiratory effort. Chest clear to auscultation bilaterally, no adventitious breath sounds GI: Abdomen normal to inspection. Soft, non tender, non- distended, no masses, no rebound tenderness or guarding. Bowel sounds active on all four quadrants Genitourinary: Deferred Extremities: Patient with lumbar support. No cyanosis, clubbing, or edema. Pulses [2+] bilaterally. Full ROM on all four extremities. No focal weakness appreciated. Neurologic: Alert to person, place, time, and situation. Affect appropriate, intact sensation. Skin: Clean,dry, and intact. No ecchymosis, no rashes, or lesions Results Result Diagram: 12/11/16 0447 12/12/16 0445 Results 24 hrs Laboratory Tests Test 12/12/16 04:45 Sodium Level 133 L Potassium Level 4.5 Chloride Level 97 Carbon Dioxide Level 31 Anion Gap 10 Blood Urea Nitrogen 22 H Creatinine 1.11 H Glucose Level 93 Calcium Level 9.1 Medications Medications Current Medications Ondansetron HCl (Zofran Inj) 4 mg Q6 PRN IV NAUSEA AND/OR VOMITING Last administered on 12/11/16 21:10; Admin Dose 4 MG; Start 12/08/16 at 20:30 Allopurinol (Zyloprim) 300 mg DAILY PO Last administered on 12/12/16 09:09; Admin Dose 300 MG; Start 12/09/16 at 09:00 Alprazolam (Xanax) 0.25 mg Q8H PRN PO ANXIETY Last administered on 12/08/16 22 :12; Admin Dose 0.25 MG; Start 12/08/16 at 20:30 Bupropion HCl (Wellbutrin Xl) 150 mg DAILY PO Last administered on 12/12/16 09 :09; Admin Dose 150 MG; Start 12/09/16 at 09:00 Fluoxetine HCl (Prozac) 40 mg DAILY PO Last administered on 12/12/16 09:09; Admin Dose 40 MG; Start 12/09/16 at 09:00 Zolpidem Tartrate (Ambien) 2.5 mg QHS PRN PO INSOMNIA Last administered on 12/10 21:45; Admin Dose 2.5 MG; Start 12/08/16 at 20:30 Calcium Carbonate (Tums) 1,000 mg Q6H PRN PO acid reflux; Start 12/10/16 at 05: 30 Ranitidine HCl (Zantac) 150 mg BID PO ; Start 12/10/16 at 09:00; Status Future Hold Famotidine (Pepcid Iv) 20 mg DAILY IV Last administered on 12/12/16 09:09; Admin Dose 20 MG; Start 12/10/16 at 09:00 Celecoxib (Celebrex) 200 mg BID PO Last administered on 12/12/16 09:09; Admin Dose 200 MG; Start 12/10/16 at 11:30 Sucralfate (Carafate) 1 gm Q6 PO Last administered on 12/12/16 06:35; Admin Dose 1 GM; Start 12/10/16 at 12:00 Acetaminophen (Tylenol Tab) 650 mg Q6H PRN PO PAIN AND OR ELEVATED TEMP; Start 12/10/16 at 11:30; Status Future hold Tizanidine HCl (Zanaflex) 4 mg TID PO Last administered on 12/12/16 09:09; Admin Dose 4 MG; Start 12/10/16 at 13:00 Magnesium Hydroxide (Milk Of Mag) 30 ml DAILY PRN PO CONSTIPATION Last administered on 12/11/16 05:23; Admin Dose 30 ML; Start 12/10/16 at 15:00 Hydromorphone HCl (Dilaudid) 1 mg Q4H PRN IV PAIN Last administered on 09:15; Admin Dose 1 MG; Start 12/11/16 at 11:30 VICKIE ALVARES NP Dec 12, 2016 10:49
[2016-12-12 15:06] VITALS: BP 119/69; RESP 18
[2016-12-12] MEDS ORDERED: SOD CHLORIDE 0.9% 1,000 ML IV SCH (15:30)
[2016-12-12 20:00] VITALS: BP 166/81; RESP 20
[2016-12-12 23:21] VITALS: BP 132/71; RESP 20
[2016-12-13] MEDS: SUCRALFATE 1 GM TAB PO SCH ×2 (05:44→12:11)
[2016-12-13] MEDS: LEVOTHYROXINE 100 MCG TAB PO SCH (05:45)
[2016-12-13] MEDS: HYDROmorphONE 1 MG/ML SYG IV PRN (07:20)
[2016-12-13 07:55] VITALS: BP 146/74; RESP 18
[2016-12-13] MEDS: ALLOPURINOL 300 MG TAB PO SCH (08:12)
[2016-12-13] MEDS: TIZANIDINE 4 MG TAB PO SCH ×2 (08:13→12:11)
[2016-12-13] MEDS: BUPROPION (XL) 150 MG TAB PO SCH (08:13)
[2016-12-13] MEDS: FLUOXETINE 20 MG CAP PO SCH (08:13)
[2016-12-13] MEDS: FAMOTIDINE 20 MG INJ IV SCH (08:14)
[2016-12-13] MEDS: CELECOXIB 200 MG CAP PO SCH (08:14)
--- NOTE | 2016-12-13 09:52 | PDOCDIS ---
Discharge Instructions CONDITION Patient Condition: Stable HOME CARE INSTRUCTIONS: Special Diet: REGULAR FOLLOW UP/APPOINTMENTS Follow-up Plan 1.Follow up with primary care physician in 1 week- Refer patient to outpatient pain management clinic If you don't have one please let someone know, we can give you resources that may help you pick one. You may also call your insurance company to assign one to you. Review your medication list with your nurse before leaving and if you need new prescriptions please let your nurse know. I may have made changes to your home medications or given you new prescriptions, please let your primary doctor know as well. Stay compliant with your medications and report any side effects to your PCP or pharmacist. Return to the ER if you have any concerns and cannot reach your doctors or call your insurance company, they usually have a nurse that can help you. 2. Call 911 or go to the nearest emergency room if experiencing loss of consciousness, dizziness, chest pain, shortness of breath, vomiting/abdominal pain, speech difficulties, motor weakness or any unusual symptoms. 3.Follow-up with [facility] oncology service for treatment initiation. VICKIE ALVARES NP Dec 13, 2016 09:52
[2016-12-13] MEDS ORDERED: TIZA4TAB PO (09:56)
[2016-12-13] MEDS ORDERED: HYDR2TAB36 PO (09:56)
[2016-12-13] MEDS ORDERED: CALC200T26 PO (09:56)
[2016-12-13] MEDS ORDERED: FAMO-96 PO (09:56)
[2016-12-13] MEDS ORDERED: CELE200C PO (09:56)
[2016-12-13] MEDS ORDERED: SUCR1TAB27 PO (09:56)
[2016-12-13 14:06] VITALS: BP 14/76; RESP 18
--- NOTE | 2016-12-13 15:17 | DS ---
Date/Time of Note Date/Time of Note DATE: 12/13/16 TIME: 15:01 Discharge Summary Admission/Discharge Info Admit Date/Time Dec 08, 2016 at 14:56 Discharge Date/Time Discharge Diagnosis 1.Chronic lymphocytic leukemia 2.Intractable low back pain with chronic compression fractures of lumbar spine. 3.Intramedullary lesion left ilium ,POSSIBLY involvement of the patient's leukemia -Patient to follow-up with [facility]. 4. Anemia of chronic disease. 5. Bicytopenia with anemia and thrombocytopenia, possibly related to her malignancy 6. Leukocytosis secondary to underlying malignancy. 7. Hypothyroidism 8. Anxiety/depression 9. Hyponatremia. Stable Patient Condition: Stable Consults ,Neurosurgery Procedures 12/08/2016. MRI pelvis IMPRESSION: 1. Marrow conversion seen in the sacrum, pelvis and bilateral hips, compatible with chronic leukemia described by history. 2. Expansile intramedullary lesion of the superior posterior left iliac with destruction of the posterior cortex at the superior posterior left iliac, seen to better advantage on today's CT examination. 3. On today's CT examination there is a similar intramedullary lesion without cortical breakthrough at the right sacral ala, but this is not well seen on today's MRI examination. 4. A contrast enhanced MRI examination may be of further use. 5. Bilateral pelvic sidewall adenopathy, and numerous small mesenteric lymph nodes may be present. 12/08/2016. MRI lumbar spine. IMPRESSION: 1. Levoconvex scoliosis centered at the upper lumbar spine. 2. L1 compression fracture with retropulsion, better characterized on dedicated MRI of the lumbar spine. 3. No significant central canal or foraminal narrowing within the thoracic spine. 4. Small right pleural effusion. 12/08/2016. MRI thoracic spine. IMPRESSION: 1. Levoconvex scoliosis centered at the upper lumbar spine. 2. L1 compression fracture with retropulsion, better characterized on dedicated MRI of the lumbar spine. 3. No significant central canal or foraminal narrowing within the thoracic spine. 4. Small right pleural effusion. Hospital Course This is a 61-year-old female with a medical history of CLL diagnosed 5 years ago who is also to start treatment at [facility], chronic anemia, hypothyroidism, anxiety/depression, who presented to the emergency room with sudden onset of severe lower back pain after she had lifted something heavy at home. A CT showed L1 compression fracture with retropulsion and canal narrowing but no evidence to suggest compression of the neural elements. She also did not have any clinical symptoms to suggest acute fractures. There was also a 5.0 x 2.6 x 1.5 cm lesion in left ilium and could represent involvement of the patient's leukemia which was shown in the CT. The patient was not aware of any prior history of pelvic bone tumor or compression fracture. Patient was admitted for pain management. Neurosurgery consultation was also called. However, according to the recommendation, the imaging is suggestive of chronic fracture with pathological fractures cannot be excluded. There was no indication for any neurosurgical intervention. Neuro surgery did not feel that this is a primary skeletal issue based on imaging findings. She was cleared for ambulation as tolerated with continuation of pain medication per neurosurgery evaluation. Patient was started on muscle relaxants along with Celebrex and as needed morphine which was then changed to Dilaudid for better pain control. During the course of hospitalization, patient was continued on her home medication for underlying other comorbidities. He also had hyponatremia which was treated with normal saline. She was also noted with significant leukocytosis secondary to CLL. In regards to the suspicion for pelvic bone lesion/tumor, patient was also not receptive to have another hematology/oncology to evaluate her at [facility]. She wanted to have it discussed with Dr. Arora who is her oncologist at [facility]. Patient was then evaluated by physical therapy. She was able to tolerate ambulation without much assistance. Her pain also was improving well with Dilaudid. She was tolerating well with physical therapy. At this time, as per physical therapy standpoint, patient is stable to be discharged with home health physical therapy and frontwheel walker. This was arranged with case management. In regards to her pain medication, as she had shown improvement with Dilaudid, recommendation was to send patient home on oral Dilaudid for a short-term course with outpatient follow-up with pain management clinic. I also discussed with Dr. Wong who is also our pain specialist over the form and for opinion, patient would benefit from oral Dilaudid as she also has a known diagnosis of CLL and now there is suspicion of iliac bone involvement. I have also discussed with patient regarding the need for her to get follow-up at [facility] as soon as possible for starting her treatment. Patient in agreement with discharge plan. Disposition: Patient will be discharged home with home health physical therapy and fronteel walker. She was given prescriptions for new medications which were added to her current regimen. She was given a complete medical records including all MRI and CT findings to bring it to [facility] as she is to start treatment by the end of this week with Dr. Arora at [facility]. Patient verbalized discharge instructions. Approximately 60 minutes was spent in coordinating the discharge on this patient. Patient was seen in collaboration with . Home Meds Active Scripts Hydromorphone Hcl* (Dilaudid*) 2 Mg Tablet, 2 MG PO Q6H Y for SEVERE PAIN LEVEL 7-10, #30 TAB Prov:ALVARESMELYVICKIE [employer]SEL[employer] 12/13/16 Famotidine* (Pepcid*) 20 Mg Tablet, 20 MG PO HS, #30 TAB Prov:ALVARESVICKIE [employer]. [employer]ET[employer]' COUNSELOR 12/13/16 Sucralfate (Carafate) 1 Gm Tablet, 1 GM PO Q6, #60 TAB Prov:ALVARESJACOBA [employer] COUNSELOR 12/13/16 Calcium Carbonate (CALCIUM CARBONATE) 200 Mg Tab.chew, 1000 MG PO Q6H Y for acid reflux, #90 TAB.CHEW Prov:ALVARESJACOBA V. VET[employer]' COUNSELOR 12/13/16 Celecoxib* (Celebrex*) 200 Mg Capsule, 200 MG PO BID, #60 CAP Prov:ALVARESVICKIE V. VETER[employer]' COUNSELOR 12/13/16 Tizanidine Hcl* (Tizanidine Hcl*) 4 Mg Tablet, 4 MG PO TID, #90 TAB Prov:ALVARESVICKIE V. [employer]ETER[employer]' COUNSELOR 12/13/16 Reported Medications Allopurinol* (Allopurinol*) 300 Mg Tablet, 300 MG PO DAILY, TAB PT WILL START 12-08-16 12/08/16 Alprazolam* (Xanax*) 0.25 Mg Tablet, 0.25 MG PO Q8H Y for ANXIETY, TAB 12/08/16 Zolpidem Tartrate* (Ambien*) 5 Mg Tablet, 2.5 MG PO QHS Y for INSOMNIA, #30 TAB 12/08/16 Levothyroxine Sodium* (Synthroid*) 100 Mcg Tablet, 100 MCG PO BEFORE BREAKFAST, #30 TAB 12/08/16 Bupropion Hcl* (Bupropion XL*) 150 Mg Tab.er.24h, 150 MG PO DAILY, TAB.SA 12/08/16 Fluoxetine Hcl* (Fluoxetine Hcl*) 40 Mg Capsule, 40 MG PO DAILY, CAP 12/08/16 Discontinued Reported Medications Diclofenac Sodium* (Diclofenac Sodium*) 50 Mg Tablet.dr, 50 MG PO BID Y for MUSCLE SPASMS, #60 TAB 12/08/16 Metaxalone* (Skelaxin*) 800 Mg Tablet, 800 MG PO Q6 Y for MUSCLE SPASMS, TAB 12/08/16 Follow-up Plan 1.Follow up with primary care physician in 1 week- Refer patient to outpatient pain management clinic If you don't have one please let someone know, we can give you resources that may help you pick one. You may also call your insurance company to assign one to you. Review your medication list with your nurse before leaving and if you need new prescriptions please let your nurse know. I may have made changes to your home medications or given you new prescriptions, please let your primary doctor know as well. Stay compliant with your medications and report any side effects to your PCP or pharmacist. Return to the ER if you have any concerns and cannot reach your doctors or call your insurance company, they usually have a nurse that can help you. 2. Call 911 or go to the nearest emergency room if experiencing loss of consciousness, dizziness, chest pain, shortness of breath, vomiting/abdominal pain, speech difficulties, motor weakness or any unusual symptoms. 3.Follow-up with [facility] oncology service for treatment initiation. Primary Care Provider Not On Staff Doctor VICKIE ALVARES NP Dec 13, 2016 15:13
== END 2016-12-13 16:25 | disposition home or self-care (01) | DRG 543 ==
LOC: E/R 07:16 → MS1 14:56
PROVIDERS: ADMIT Internal Medicine; ATTEND Internal Medicine
DX: M48.56XA Collapsed vertebra, not elsewhere classified, lumbar region, initial encounter for fracture (principal); S32.019A Unspecified fracture of first lumbar vertebra, initial encounter for closed fracture; N17.9 Acute kidney failure, unspecified; C91.10 Chronic lymphocytic leukemia of B-cell type not having achieved remission; D69.6 Thrombocytopenia, unspecified; E87.1 Hypo-osmolality and hyponatremia; E86.0 Dehydration; M85.80 Other specified disorders of bone density and structure, unspecified site; X50.9XXA Other and unspecified overexertion or strenuous movements or postures, initial encounter; D64.89 Other specified anemias; E03.9 Hypothyroidism, unspecified; F41.8 Other specified anxiety disorders
CPT/HCPCS: 36430; 72146; 72148; 72192; 72195; 80048; 80053; 82728; 83540; 83735; 84100; 85025; 85610; 85730; 86850; 86900; 86901; 86920; 96374; 96375; 96376; 97116; 97162; 97530; J1170; J1885; J2270; J2405; J3360; J7030; P9016